=== PATIENT | male | born 1985 | race Caucasian/White ===

== ENCOUNTER 2019-07-01 12:52 | Emergency (ER) | payer MEDICAID, OTHER ==
[~2019-07-01] VITALS: Ht 177.8 cm; Wt 215.5 kg
--- NOTE | 2019-07-01 12:56 | NUR ---
Patient escorted in by [employer] officers. AAOx4 cooperative.
--- NOTE | 2019-07-01 12:58 | NUR ---
Patient at bedside to examine patient. Addendum: 07/01/[address] Arauz at bedside to evaluate patient.
--- NOTE | 2019-07-01 13:00 | NUR ---
harvest worker field crop called report given and informed of needed placement.
[2019-07-01 13:29] LABS: BASOPHILS % (AUTO) 0.5 % (0.0-2.0); EOSINOPHILS # (AUTO) 0.1 K/uL (0.0-0.7); EOSINOPHILS % (AUTO) 2.3 % (0.0-7.0); HEMATOCRIT 38.9 % (36.7-47.1); HEMOGLOBIN 13.3 g/dL (12.5-16.3); LYMPHOCYTES # (AUTO) 1.2 K/uL (20.0-40.0); LYMPHOCYTES % (AUTO) 22.4 % (20.5-51.5); MEAN CORPUSCULAR HEMOGLOBIN 39.3 uug (23.8-33.4); MEAN CORPUSCULAR HGB CONC 34 g/dL (32.5-36.3); MEAN CORPUSCULAR VOLUME 115.4 fL (73.0-96.2); MONOCYTES # (AUTO) 0.4 K/uL (2.0-10.0); NEUTROPHILS # (AUTO) 3.6 K/uL (1.8-8.9); NEUTROPHILS % (AUTO) 66.8 % (38.5-71.5); PLATELET COUNT (AUTO) 179 K/uL (152-348); RED BLOOD CELL COUNT(AUTO) 3.37 MIL/uL (4.06-5.63); WHITE BLOOD COUNT (AUTO) 5.5 K/uL (3.6-10.2)
[2019-07-01 13:37] LABS: CARBON DIOXIDE 27 mmol/L (21-32); CHLORIDE 105 mmol/L (98-107); CREATININE 0.8 mg/dL (0.6-1.3); GLUCOSE 77 mg/dL (74-106); POTASSIUM 4.1 mmol/L (3.5-5.1); UREA NITROGEN, BLOOD 7 mg/dL (7-18)
[2019-07-01 13:50] LABS: ETHANOL 175 MG/DL (0-0)
[2019-07-01 13:51] LABS: ACETAMINOPHEN < 2.0 ug/mL (10-30); ALANINE AMINOTRANSFERASE 71 U/L (16-63); ALKALINE PHOSPHATASE 80 U/L (50-136); ASPARTATE AMINOTRANSFERASE 153 U/L (15-37); BILIRUBIN,DIRECT 0.2 mg/dL (0.0-0.2); BILIRUBIN,TOTAL 0.5 mg/dL (0.2-1.0); TOTAL PROTEIN, SERUM 6.4 g/dL (6.4-8.2)
--- NOTE | 2019-07-01 13:51 | NUR ---
Alcohol level of 175 reported from lab. MD Arauz notified.
--- NOTE | 2019-07-01 14:01 | NUR ---
A call from caseworker intake Ms. Smith and advice to obtain a sitter for patient, photographic supervisor called to be notified.
--- NOTE | 2019-07-01 14:16 | NUR ---
Urine collected and sent to lab.
[2019-07-01 14:43] LABS: *BILIRUBIN,URIN NEGATIVE (NEGATIVE); *BLOOD, URINE NEGATIVE (NEGATIVE); *CLARITY,URINE CLEAR (CLEAR); *COLOR,URINE YELLOW (YELLOW); *KETONES,URINE NEGATIVE (NEGATIVE); LEUKOCYTE ESTERASE ,URINE NEGATIVE (NEGATIVE); NITRITE, URINE NEGATIVE (NEGATIVE); UGLUCOSE NEGATIVE (NEGATIVE)
--- NOTE | 2019-07-01 14:45 | NUR ---
As reported by social media marketing specialist Ms. Cruz after assessing as stated she will arrange to have crisis team academic physician to come and see patient and later on will fax paper work to [facility], for possible admission at this facility.
[2019-07-01 14:59] LABS: *AMPHETAMINE, URINE NEGATIVE (NEGATIVE); *BARBITURATE, URINE NEGATIVE (NEGATIVE); *CANNABINOID, URINE POSITIVE (NEGATIVE); *COCCAINE, URINE NEGATIVE (NEGATIVE); *OPIATE, URINE NEGATIVE (NEGATIVE); *PHENCYCLIDINE SCREEN,URINE NEGATIVE (NEGATIVE)
[2019-07-01] MEDS ORDERED: THIAMINE HCL 100 MG TABLET PO ONE (15:00)
[2019-07-01] MEDS ORDERED: FOLIC ACID 1 MG TABLET PO ONE (15:00)
--- NOTE | 2019-07-01 15:10 | NUR ---
2:05pm: SW arrived to the ED. SW met with SAM Vaughan and Dr. Arauz to discuss patient's social service needs. SW then met with the patient, who was awake and in his assigned ED bed. Patient is a 34 year old male, alert, oriented x 4, cooperative and willing to speak with this SW. 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 Patient expressed feeling very depressed, not being able to cope anymore, and just "I want all this to be over". Patient expressed waking up this morning and wanting to jump off of a freeway overpass, but then changing his mind. Patient was brought in by police, who had placed him on a 5150 hold. Patient was tearful and expressed wanting to get help. SW validated patient's feelings, provided supportive counseling. Patient expressed agreement with going to a psychiatric hospital for treatment. SW to work on placement for this patient. YVONNE spoke with Norris at [facility] [phone], who stated that if patient is found to not require a hold, then [facility]. YVONNE consulted with Director Salma Peguero regarding patient's willingness to be placed in an inpatient psychiatric hospital, and about this YVONNE's discussion with Norris. Salma suggested for this SW to call the crisis team to assess the patient for the need of the 5150 hold he is currently on. YVONNE called Paper Bag Maker Karina Anglin [phone] at 2:30pm, and left her a voicemail message. About 5 minutes later, Karina called this SW back and patient's case and need for evaluation were discussed. Karina stated she will be arrive in about 1 hour in order to assess patient's need for a hold. SW to follow-up with placement arrangements after Karina's evaluation is complete. SW informed SAM Vaughan and Dr. Arauz about all above. YVONNE also informed patient that SW continues to work on placement for the patient, and would let him know once a placement was secured. Patient expressed agreement, and is resting comfortably in his assigned ED bed. Addendum: 07/01/19 at 1604 by JEREMIAS RUSSELL Addition to note: During this SW's assessment, patient expressed having thoughts of wanting to harm his ex-. SW assessed for plan and intent, and patient expressed that he has not had any communication with his since their divorce in December 2017. Patient stated that he doesn't know where his ex- lives, nor does he have a phone number for her. Patient then stated that this was not something he would act on, and that he was just feeling very down and "wanted it all to end".
--- NOTE | 2019-07-01 15:40 | NUR ---
Audra Crisis team lease analyst in to examine patient.
--- NOTE | 2019-07-01 15:45 | NUR ---
1:1 sitter at bedside.
--- NOTE | 2019-07-01 15:53 | NUR ---
soil sort worker Ms. Cruz called to be informed that 5150 hold was lifted by crisis team assistant professor of anthropology as stated she will find placement for patient.
--- NOTE | 2019-07-01 16:45 | NUR ---
3:55pm: YVONNE informed by SAM Vaughan that crisis team clinician Audra Anglin was in the ED, had assessed the patient and that the 5150 hold was going to be discontinued. YVONNE will wait for yoker report before contacting Norris at [facility] for placement.
--- NOTE | 2019-07-01 16:46 | NUR ---
4:26pm: profiling machine setup operator's note has posted in patient's records. YVONNE called Norris at [facility] [phone] to refer patient for inpatient psych hospitalization. Norris asked this SW to fax patient's medical records to him at [phone]. YVONNE informed Norris that YVONNE will include both her contact number and the ED contact number on the fax cover sheet, and Norris expressed agreement.
--- NOTE | 2019-07-01 16:49 | NUR ---
4:35pm: YVONNE faxed ED summary report, ED physician's note, labs, balloon seller's note, [employer] hold (even though it was discontinued by the balloon seller), and patient's face sheet to Norris at [facility], fax # [phone] (Norris's phone # [phone]).
--- NOTE | 2019-07-01 16:50 | NUR ---
4:45pm: YVONNE spoke with ED RN Alexus and informed her that the referral fax has been sent. YVONNE informed Alexus that [facility] may contact her directly in the ED, and for her to find out which [facility] location patient will be going to, the name/number of the unit, and to then call that unit to give the [id number] report. YVONNE also informed Alexus that once patient is ready to be transferred to [facility], that he would need to be transferred via ambulance. Alexus expressed understanding.
--- NOTE | 2019-07-01 16:51 | NUR ---
103/61, HR 75, 98% SAT, RR 18. No c/of pain and pt. eating early dinner.
--- NOTE | 2019-07-01 17:45 | NUR ---
A call from social worker aide with an update as stated she had faxed pt's file to [facility] for pt's admission and transfer. As per her statement [facility] will call E.R. department once bed is available and intake will provide information and number to call and give report. Once bed available and report given ambulance should be called to transfer pt. as indicated.
--- NOTE | 2019-07-01 19:09 | NUR ---
Report given to rn. Vivian Keen
--- NOTE | 2019-07-01 19:10 | NUR ---
Report received from Alexus VARGAS. As per report patient awaiting bed at [facility] for psyche admission. With 1:1 sitter. Patient sleeping, but easily arouses to name. Patient claims: he needs help when asked if he feels like hurting himself.
--- NOTE | 2019-07-01 22:45 | NUR ---
Awake, ambulated to the BR. NAD noted. Back to sleep.
--- NOTE | 2019-07-02 01:57 | NUR ---
Called [facility] intake , spoke to Justin who states they did not get any intake or summary report of patient to [facility] for acceptance of admission. Faxed summary report to as requested.
--- NOTE | 2019-07-02 02:56 | NUR ---
Still awaiting for bed at [facility]. Patient aware.
--- NOTE | 2019-07-02 04:20 | NUR ---
Spoke to Ramona erazo from [facility], who confirms she got the 26pages of summary report.
--- NOTE | 2019-07-02 06:00 | NUR ---
Repeat ETOH level drawn. Patient ambulated to BR without problems. VS stable. Transfer acknowlegement signed by patient. Made aware that bed is still not available. Back to sleep.
[2019-07-02 06:24] LABS: ETHANOL < 3 MG/DL (0-0)
--- NOTE | 2019-07-02 06:36 | NUR ---
Faxed the repeat alcohol Level to [facility] intake from [place]. Waiting for transfer info.
--- NOTE | 2019-07-02 06:44 | NUR ---
Valorie from [place] intake called back with transfer info. Patient will be accepted at [facility] [place] unit #1. Call for report is . Accepting MD is Dr Kruger and Dr Beatty.
--- NOTE | 2019-07-02 06:57 | NUR ---
Called [facility] insurance to transfer patient to [facility], spoke to Richar. Gave a trip #[id number]. Will call back with ETA of package pick up.
--- NOTE | 2019-07-02 07:00 | NUR ---
Report given to Alexus VARGAS.
--- NOTE | 2019-07-02 07:00 | NUR ---
Call [facility] and report given to ranjana Berg.
--- NOTE | 2019-07-02 07:03 | NUR ---
A call from Kevin from [facility] and ETOA of [id number] received.
[2019-07-02 08:35] VITALS: BP 118/70
--- NOTE | 2019-07-02 08:41 | NUR ---
[facility] transfer services, in the unit to transfer pt. to [facility] [place] report given to Jack. Patient left room ambulatory, AAOX4. vitals stable no complains of pain or any visible discomfort. Addendum: 07/02/19 at 0843 by BONI transfer file given to Mr. Santiago
== END 2019-07-02 08:44 ==
LOC: ER 12:52
DX: F32.9 Major depressive disorder, single episode, unspecified (principal); R45.850 Homicidal ideations; K70.9 Alcoholic liver disease, unspecified; F10.129 Alcohol abuse with intoxication, unspecified; Y90.6 Blood alcohol level of 120-199 mg/100 ml; Z59.0 Homelessness; D75.89 Other specified diseases of blood and blood-forming organs; Z82.49 Family history of ischemic heart disease and other diseases of the circulatory system; F12.10 Cannabis abuse, uncomplicated; G47.30 Sleep apnea, unspecified
CPT/HCPCS: 36415 ×2; 80048; 80076; 80307 ×3; 80329; 81001; 85025; 99285; G0480; A4663